=== PATIENT | female | born 1985 ===

== ENCOUNTER 2020-11-15 14:25 | Inpatient (IN) | payer SELFPAY ==
[2020-11-15] MEDS ORDERED: CARBOPROST TROMETHAMINE 250 MCG/1 ML INJ IM PRN (15:52)
[2020-11-15] MEDS ORDERED: LIDOCAINE (2%) 20 MG/1 ML VIAL 20 ML MDV INFILTRATI ONE (15:52)
[2020-11-15] MEDS ORDERED: OXYTOCIN 10 UNIT/1 ML INJ IM PRN (15:52)
[2020-11-15] MEDS ORDERED: LOPERAMIDE 2 MG CAP PO PRN (15:52)
[2020-11-15] MEDS ORDERED: TERBUTALINE 1 MG/1 ML INJ SUB-Q PRN (15:52)
[2020-11-15] MEDS ORDERED: OXYTOCIN DRIP 30 UNITS/500 ML BAG IV SCH ×2 (16:00)
--- NOTE | 2020-11-15 16:11 | History and Physical Report ---
History of Present Illness Date of examination: 11/15/20 Date of admission: 11/15/20 14:25 Chief complaint: IUFD at 15 weeks History of present illness: 35-year-old -0-1-2 at 15 weeks with IUFD confirmed by ultrasound in the office today. Past History Past Surgical History: section Family/Genetic History: none Social history: no significant social history - Obstetrical History : 4 Para: 2 Medications and Allergies Allergies Allergy/AdvReac Type Severity Reaction Status Date / Time No Known Allergies Allergy Verified 11/15/20 14:57 Home Medications Medication Instructions Recorded Confirmed Last Taken Type One Daily Tablet 1 tab PO DAILY 11/15/20 11/15/20 3 Weeks Ago History ~10/25/20 Tylenol 1 tab PO PRN 11/15/20 1 Day Ago History ~11/14/20 1 tab Active Meds: Active Medications Acetaminophen (Acetaminophen 325 Mg Tab) 650 mg PO Q4H PRN PRN Reason: Pain, Mild (1-3) Butorphanol Tartrate (Butorphanol 2 Mg/1 Ml Inj) 2 mg IV Q2H PRN PRN Reason: Pain , Severe (7-10) Carboprost Tromethamine (Carboprost Tromethamine 250 Mcg/1 Ml Inj) 250 mcg IM ONCE PRN PRN Reason: Uterine Bleeding Stop: 11/16/20 15:51 Ephedrine Sulfate (Ephedrine Sulfate 50 Mg/1 Ml Inj) 10 mg IV Q2M PRN PRN Reason: Hypotension Fentanyl (Fentanyl 100 Mcg/2 Ml Inj) 100 mcg IV Q2H PRN PRN Reason: Pain,Severe (7-10) LABOR PAIN Oxytocin/Sodium Chloride (Pitocin/Ns 30 Unit/500ml) 30 units in 500 mls @ 2 mls/hr IV TITR JACY; Protocol Lactated Ringer's (Lactated Ringers) 1,000 mls @ 125 mls/hr IV DIRECT JACY Oxytocin/Sodium Chloride (Pitocin/Ns 30 Unit/500ml) 30 units in 500 mls @ 40 mls/hr IV TITR JACY; Protocol Loperamide HCl (Loperamide 2 Mg Cap) 2 mg PO ONCE PRN PRN Reason: give with Hemabate Stop: 11/16/20 15:51 Methylergonovine Maleate (Methylergonovine Maleate 0.2 Mg/Ml Vial) 0.2 mg IM ONCE PRN PRN Reason: Uterine Bleeding Stop: 11/16/20 16:29 Mineral Oil (Mineral Oil 30 Ml Oral Liqd) 30 ml PO QHS PRN PRN Reason: Constipation Misoprostol (Misoprostol 200 Mcg Tab) 800 mcg AL ONCE PRN PRN Reason: Uterine Bleeding Stop: 11/16/20 16:29 Misoprostol (Misoprostol 200 Mcg Tab) 200 mcg VG Q6HR JACY Stop: 11/16/20 12:01 Nalbuphine HCl (Nalbuphine 10 Mg/1 Ml Inj) 10 mg IV Q2H PRN PRN Reason: Pain, Moderate (4-6) Oxytocin (Oxytocin 10 Unit/1 Ml Inj) 10 unit IM ONCE PRN PRN Reason: Uterine Bleeding Stop: 11/16/20 15:51 Terbutaline Sulfate (Terbutaline 1 Mg/1 Ml Inj) 0.25 mg SUB-Q ONCE PRN PRN Reason: Hyperstimulation/Hypertonicity Stop: 11/16/20 15:51 Review of Systems All systems: negative (No OB complaints) - Vital Signs Vital signs: Vital Signs Pulse BP Pulse Ox 68 121/56 98 11/15/20 14:53 11/15/20 14:53 11/15/20 14:53 Temp Pulse Resp BP Pulse Ox 99.0 F 60 121/56 98 11/15/20 15:00 11/15/20 16:08 11/15/20 14:53 11/15/20 16:08 - Physical Exam Cardiovascular: Regular rate Lungs: Positive: Clear to auscultation Abdomen: Positive: normal appearance, normal bowel sounds Genitourinary (Female): Positive: normal external genitalia Vulva: both: normal Vagina: Positive: normal moisture Cervix: Positive: other (Closed long and high) Extremities: Positive: normal Deep Tendon Reflex Grade: Normal +2 Results All other labs normal. Assessment and Plan IUFD Previous x1 Previous x1 Admission Cytotec 200 mcg per vagina every 6 hours x4 doses Pain medicine as needed Admission lab MAternal status reassuring at bedside Sharon Bae MD
[2020-11-15] MEDS: LACTATED RINGERS 1,000 ML IV SCH (16:17)
[2020-11-15] MEDS ORDERED: BUTORPHANOL 2 MG/1 ML INJ IV PRN (16:30)
[2020-11-15] MEDS ORDERED: miSOPROStol 200 MCG TAB PR PRN (16:30)
[2020-11-15] MEDS ORDERED: METHYLERGONOVINE MALEATE 0.2 MG/ML VIAL IM PRN (16:30)
[2020-11-15] MEDS ORDERED: fentaNYL 100 MCG/2 ML INJ IV PRN (16:30)
[2020-11-15] MEDS ORDERED: ePHEDrine SULFATE 50 MG/1 ML INJ IV PRN (17:00)
[2020-11-15] MEDS ORDERED: ACETAMINOPHEN 325 MG TAB PO PRN (17:00)
[2020-11-15] MEDS ORDERED: NalbUPHINE 10 MG/1 ML INJ IV PRN (17:00)
[2020-11-15 17:54] LABS: Hematocrit 33.1 % (30.3-42.9); Mean Corpuscular HGB Conc 36 % (30-34); Mean Corpuscular Volume 95 fl (79-97); Platelet Count 353 K/mm3 (140-440); Red Cell Distribution Width 11.8 % (13.2-15.2)
[2020-11-15] MEDS: miSOPROStol 200 MCG TAB VG SCH (18:04)
[2020-11-15] MEDS ORDERED: MINERAL OIL 30 ML ORAL LIQD PO PRN (22:00)
[2020-11-16] MEDS: miSOPROStol 200 MCG TAB VG SCH ×2 (00:24→06:24)
[2020-11-16] MEDS: LACTATED RINGERS 1,000 ML IV SCH (00:51)
[2020-11-16] MEDS ORDERED: miSOPROStol 100 MCG TAB ONE (09:24)
--- NOTE | 2020-11-16 10:20 | Procedure Note ---
Date of procedure: 11/16/20 Pre-op diagnosis: 15 wks iufd Post-op diagnosis: same Procedure: Surgeon mosley. Preop diagnoses intrauterine demise at 15 weeks. Postop diagnosis same. Procedure; normal spontaneous vaginal delivery of a 15-week intrauterine demise. The patient was on the exam table with significant amount of bleeding. She was examined and found to have a fetus in her vagina and was delivered vaginally the cord was doubly clamped and cut the placenta was not delivered. The patient was given IV Pitocin await the delivery of the placenta. The placenta was delivered piecemeal proximal 1 hour after delivery of the fetus. All the placenta without having to do a curettage. The patient had minimal bleeding at the end of the procedure. She tolerated procedure well. Estimated blood loss 50 cc. Complications none. Anesthesia: none Surgeon: SHARMAINE MOSLEY Estimated blood loss: 50-100ml Pathology: list (fetus) Specimen disposition: to lab Condition: stable Disposition: observation
[2020-11-16] MEDS ORDERED: HYDROcodone/ACETAMINOPHEN 5-325 MG TAB PO PRN (10:59)
[2020-11-16] MEDS ORDERED: PROMETHAZINE 25 MG TAB PO PRN (10:59)
[2020-11-16] MEDS ORDERED: ONDANSETRON 4 MG/2 ML INJ IV PRN (10:59)
[2020-11-16] MEDS ORDERED: MAGNESIUM HYDROXIDE (MOM) ORAL LIQD UDC PO PRN (10:59)
[2020-11-16] MEDS ORDERED: PROMETHAZINE 25 MG RECT SUPP PR PRN (10:59)
[2020-11-16] MEDS ORDERED: diphenhydrAMINE 25 MG CAP PO PRN (10:59)
[2020-11-16] MEDS ORDERED: LANOLIN/ZINC/DIMETHICONE (LANSINOH) 7 GM TP PRN (10:59)
[2020-11-16] MEDS ORDERED: WITCH HAZEL/ GLYCERIN PAD TP PRN (10:59)
[2020-11-16] MEDS ORDERED: ACETAMINOPHEN 325 MG TAB PO PRN (10:59)
[2020-11-16] MEDS: IBUPROFEN 600 MG TAB PO SCH (19:59)
[2020-11-16 23:36] LABS: Hematocrit 27.7 % (30.3-42.9)
[2020-11-17] MEDS: IBUPROFEN 600 MG TAB PO SCH ×2 (08:34→08:35)
[2020-11-17 10:16] VITALS: BP 113/66
== END 2020-11-17 11:05 | disposition home or self-care (01) | DRG 779 ==
LOC: LD 14:25 → OB 11-16 13:52
PROVIDERS: ADMIT Obstetrics & Gynecology; ATTEND Obstetrics & Gynecology
PROC: 10E0XZZ Delivery of Products of Conception, External Approach (ICD-10-PCS; principal; 2020-11-16)
DX: O02.1 Missed abortion (principal); Z20.822 Contact with and (suspected) exposure to COVID-19
CPT/HCPCS: 36415; 85014; 85018; 85027; 86850; 86900; 86901; 88305; G0378; J7120; U0003